=== PATIENT | male | born 1950 | race Caucasian/White ===

== ENCOUNTER → 2017-01-13 | Outpatient (CLI) | payer MEDICARE, OTHER ==
[~2017-01-13] MED LIST: BARIUM SULFATE 135 ML (E-Z HD) PO ONE; CAND16TA PO; LAMO200T18 PO; METF500T4 PO; SIMETH/SOD BICARB/CIT AC PKT (E-Z- GAS II) PO ONE; SIMV40TA3 PO
--- NOTE | 2017-01-13 14:38 | RADRPT ---
PROCEDURE: Upper GI series. CLINICAL INDICATION: Abdominal pain and vomiting. TECHNIQUE: Barium and gas granules were administered orally and several spot and overhead radiogra phs were obtained. Fluoroscopy time is 0.3 minutes and 29 images were obtained. COMPARISON: CT scan of the abdomen and pelvis dated 11/11/2014. FINDINGS: There has been prior cervical spine surgery with hardware noted. There is no aspiration during swall owing. There is no pharyngeal abnormality. There is no Zenker's diverticulum. Esophageal motility is normal. There is no esophageal mass, ulcer, or stricture. There is no gastroesophageal reflux. A small hiatus hernia is noted. The stomach and duodenum are normal with no ulceration, mass, or mucosal abnormality. IMPRESSION: 1. Prior cervical spine surgery with hardware noted. 2. No aspiration during swallowing. 3. No Zenker's diverticulum. 4. Small hiatus hernia. 5. Otherwise unremarkable upper GI series. RPTAT: QQ .Zain Cornell MD, Date Time Electronically viewed and signed by .Zain Cornell MD, on 01/13/2017 14:37 .R/
== END | disposition home or self-care (01) ==
LOC: RAD 08:52
PROVIDERS: ATTEND Internal Medicine Gastroenterology
DX: R13.10 Dysphagia, unspecified (principal); R11.10 Vomiting, unspecified
CPT/HCPCS: 74240

== ENCOUNTER 2017-02-03 08:24 | Day surgery (SDC) | payer MEDICARE, OTHER ==
[~2017-02-03] VITALS: Ht 180.3 cm; Wt 73.2 kg
[~2017-02-03 08:24] MED LIST changes: -BARIUM SULFATE 135 ML (E-Z HD) PO ONE; -SIMETH/SOD BICARB/CIT AC PKT (E-Z- GAS II) PO ONE
[2017-02-03 08:56] VITALS: Ht 180.3 cm; Wt 73.2 kg
[2017-02-03] MEDS ORDERED: PROPOFOL 20 ML ONE (09:03)
[2017-02-03] MEDS ORDERED: LIDOCAINE 2% (SDV) 5 ML INJ ONE (09:03)
[2017-02-03] MEDS ORDERED: FENTAnyl 50 MCG/ML VIAL ONE (09:04)
[2017-02-03] MEDS ORDERED: MIDAZOLAM 1 MG/ML 2 ML INJ ONE (09:04)
[2017-02-03 09:32] VITALS: BP 128/72; PULSE 75; RESP 18
[2017-02-03] MEDS ORDERED: DEXAMETHASONE 4 MG/ML 1 ML INJ ONE (10:23)
[2017-02-03] MEDS ORDERED: ONDANSETRON 4 MG INJ ONE (10:24)
--- NOTE | 2017-02-03 11:07 | OPPN ---
Date/Time of Note Date/Time of Note DATE: 02/03/17 TIME: 11:02 Proc Note GI Procedure Date 02/03/17 Indication: screening/surveillance, diagnostic Pre-procedure Diagnosis vomitting r/o pud gerd h/o colon polyps Post-procedure Diagnosis small ulcer at gej small hiatal hernia gastritis diverticulosis Procedure Performed: Endoscopy, Colonoscopy Surgeon see signature line [employer] none Anesthesia Type: MAC Tourniquet Time none EBL none Transfusion required none Biopsy 1: gastric duod bx bx from gej Grafts/Implants none Tubes/Drains none Complication(s) none Procedure Description egd /colonoscopy performed under mac egd showed small ulcer at gej smal;l hiatal hernia gastritis diverticulosis see dictation MAHAMED CARTY MD Feb 03, 2017 11:07
--- NOTE | 2017-02-03 13:07 | GILP ---
DATE OF PROCEDURE: NAME OF PROCEDURE: Esophagogastroduodenoscopy. PREOPERATIVE DIAGNOSES: Patient presenting with history of periodic vomiting, occasional heartburn, occasional epigastric pain, rule out peptic ulcer disease, esophagitis, rule out esophageal or dive rticula. POSTOPERATIVE DIAGNOSES: 1. A 3 mm ulcer noted in the GE junction. 2. Small hiatal hernia. 3. Minimal patchy gastritis of the fundus of the stomach. 4. Minimal thickening of the prepyloric fold. DESCRIPTION OF PROCEDURE: After the informed written consent was obtained, the patient was asked to lie on the left lateral side. Intravenous anesthesia was given by anesthesiologist, Dr. Herring. When the patient became somnolent, the Olympus video upper endoscope was introduced into the oropha rynx, then into the esophagus. Esophagus appeared to be tortuous in the upper part of the esophagus ; however, there is no significant mucosal abnormality detected. No significant diverticula noted; however, the upper esophageal lumen showed little tortuosity. At about 40 cm from the incisor teeth , there is evidence of a small hiatal hernia. There is a 3 mm ulcer noted at the GE junction. Biop sies were obtained to rule out Valencia's esophagus, possible malignancy, which is unlikely. Scope a t this time was advanced into the stomach. Stomach showed evidence of several areas of erythema. T here are minute erythematous mucosal in the fundus. The prepyloric mucosa showed a thickening of the fold. Biopsies were obtained from this thickening of the fold. Also, biopsy was done from the antrum and the lesser curvature to rule out Helicobacter pylori infection. Biopsies were done f rom the fundus and the cardia to rule out H. pylori infection. The mucosa of the duodenum appeared normal up to the end of the third portion. However, biopsy was obtained to rule out any opportunist ic infections or any evidence of sprue. Scope at this time was withdrawn. On the way out there see ms to be some deformity around the arytenoid folds on the right side. There is a diverticulum here, though not as difficult to evaluate at this examination. Scope was withdrawn and the procedure was terminated. PLAN: 1. Recommend ears, nose, and throat evaluation. 2. Wait for the pathology report. 3. Recommend Dexilant 60 mg once a day for 2 months and if necessary, Reglan 10 mg before meals whe never necessary. Dictated By: MAHAMED MALDONADO/NTS Conf#: [id number] [facility]#: [id number] CC: HUBER CEVALLOS MD;*EndCC*
--- NOTE | 2017-02-03 13:10 | GILP ---
DATE OF PROCEDURE: PROCEDURE: Colonoscopy. PREOPERATIVE DIAGNOSES: Patient presenting with history of colon polyps in the past. Last colon po lyp was an adenomatous polyp 5 years ago. His mother had a colon cancer, rule out recurrence of col on polyps. POSTOPERATIVE DIAGNOSES: Mild degree of diverticulosis. The rest of the colon appeared normal. Singh boptimal preparation noted. Terminal ileum appeared normal. DESCRIPTION OF PROCEDURE: After the informed written consent was obtained, the patient was asked to lie on the left lateral side. Intravenous anesthesia was given by anesthesiologist, Dr. Herring. When the patient became somnolent, the Olympus video colonoscope was introduced into the rectum and advanced all the way to the cecum. Terminal ileum was examined, which appeared normal. Cecum show ed some amount of stool which was irrigated and cleaned. Large polyps were noted. Small polyps can not be excluded. There is some amount of liquid stool noted all along the colon. Most of it was as pirated; however, everything could not be aspirated because this endoscope got clogged 3 times. How ever, no large polyps were noted. Small polyps cannot be excluded. On the way out, no significant hemorrhoids noted and at this time, procedure was terminated. PLAN: Recommend repeat the procedure in 1 year. Dictated By: MAHAMED MALDONADO/JOHN Conf#: [id number] DID#: [id number] CC: HUBER CEVALLOS MD;*EndCC*
== END 2017-02-03 13:44 | disposition home or self-care (01) ==
LOC: GIL 08:24
PROVIDERS: ATTEND Internal Medicine Gastroenterology
DX: Z12.11 Encounter for screening for malignant neoplasm of colon (principal); K29.50 Unspecified chronic gastritis without bleeding; K63.5 Polyp of colon; K57.90 Diverticulosis of intestine, part unspecified, without perforation or abscess without bleeding; K44.9 Diaphragmatic hernia without obstruction or gangrene
CPT/HCPCS: 43239; 45378; 88305; 88312; 88313; J1100; J2250; J2405; J3010

== ENCOUNTER 2017-06-09 07:49 | Day surgery (SDC) | END 2017-06-09 12:17 | disposition home or self-care (01) ==